=== PATIENT | female | born 1965 | race Caucasian/White ===

== ENCOUNTER 2016-07-17 23:22 | Emergency (ER) | payer OTHER ==
[2016-07-17 23:39] VITALS: BMI 29.7
--- NOTE | 2016-07-18 00:04 | PDOC ---
History of Present Illness - History of Present Illness Initial Comments: 07/18/16 00:34 Patient is a 51 year old female with significant medical hx of anxiety who is presenting to the ED after taking a sedative and smoking marijuana. Patient states she's been taking ambien for the past 20 years for sleep without any problems. Tonight she smoked marijuana for the first time after taking 15 mg of ambien. The patient came to the ED tonight because she is afraid and wants to be evaluated. The patient does not offer any other complaints. Patient also takes klonopin every morning for anxiety. <Janice Bravo - Last Filed: 07/18/16 01:04> <Samson Keen - Last Filed: 07/18/16 02:05> - General Chief Complaint: Lightheaded Stated Complaint: NUMBNESS Time Seen by Provider: 07/18/16 00:04 Past History <Janice Bravo - Last Filed: 07/18/16 01:04> - Past Medical History Psychiatric Problems: Yes (anxiety, bipolar,depression) - Immunization History Immunization Up to Date: Yes - Psycho/Social/Smoking Cessation Hx Anxiety: Yes Suicidal Ideation: No Smoking History: Never smoked Have you smoked in the past 12 months: No Information on smoking cessation initiated: No Hx Alcohol Use: No Drug/Substance Use Hx: Yes Substance Use Type: None <Samson Keen - Last Filed: 07/18/16 02:05> - Past Medical History Allergies/Adverse Reactions: Allergies Allergy/AdvReac Type Severity Reaction Status Date / Time No Known Allergies Allergy Verified 07/17/16 23:40 Home Medications: Ambulatory Orders Escitalopram Oxalate [Lexapro -] 20 mg PO DAILY 02/27/14 Zolpidem Tartrate [Ambien] 10 mg PO HS 02/27/14 Clonazepam [Klonopin -] 2 mg PO AM 07/17/16 Review of Systems - Review of Systems Comments:: 07/18/16 00:40 GENERAL/CONSTITUTIONAL: No fever or chills. No weakness. HEAD, EYES, EARS, NOSE AND THROAT: No change in vision. No ear pain or discharge. No sore throat. CARDIOVASCULAR: No chest pain or shortness of breath. RESPIRATORY: No cough, wheezing, or hemoptysis. GASTROINTESTINAL: No nausea, vomiting, diarrhea or constipation. GENITOURINARY: No dysuria, frequency, or change in urination. MUSCULOSKELETAL: No joint or muscle swelling or pain. No neck or back pain. SKIN: No rash NEUROLOGIC: No headache, vertigo, loss of consciousness, or change in strength/ sensation. <ShellyJose Carlosa - Last Filed: 07/18/16 01:04> *Physical Exam - Vital Signs Last Vital Signs Temp Pulse Resp BP Pulse Ox 120 H 18 98/73 98 07/17/16 23:32 07/17/16 23:32 07/17/16 23:32 07/17/16 23:32 - Physical Exam Comments: 07/18/16 00:40 GENERAL: Awake, alert, and fully oriented, in no acute distress HEAD: No signs of trauma EYES: PERRLA, EOMI, sclera anicteric, conjunctiva clear ENT: Auricles normal inspection, hearing grossly normal, nares patent, oropharynx clear without exudates. Moist mucosa NECK: Normal ROM, supple, no lymphadenopathy, JVD, or masses LUNGS: Breath sounds equal, clear to auscultation bilaterally. No wheezes, and no crackles HEART: Regular rate and rhythm, normal S1 and S2, no murmurs, rubs or gallops ABDOMEN: Soft, nontender, normoactive bowel sounds. No guarding, no rebound. No masses EXTREMITIES: Normal range of motion, no edema. No clubbing or cyanosis. No cords, erythema, or tenderness NEUROLOGICAL: Cranial nerves II through XII grossly intact. Normal speech, normal gait SKIN: Warm, Dry, normal turgor, no rashes or lesions noted. ENDOCRINE: No increased thirst. No abnormal weight change. HEMATOLOGIC/LYMPHATIC: No anemia, easy bleeding, or history of blood clots. ALLERGIC/IMMUNOLOGIC: No hives or skin allergy. <ShellyJanice - Last Filed: 07/18/16 01:04> - Vital Signs Last Vital Signs Temp Pulse Resp BP Pulse Ox 120 H 18 98/73 98 07/17/16 23:32 07/17/16 23:32 07/17/16 23:32 07/17/16 23:32 <Samson Keen - Last Filed: 07/18/16 02:05> Heart Score/ECG Review #1 07/18/16 00:44 Poor data quality, interpretation may be adversely affected Sinus tachycardia at 111 bpm Nonspecific T wave abnormality Abnormal ECG <ShellyJanice - Last Filed: 07/18/16 01:04> ED Treatment Course - LABORATORY CBC & Chemistry Diagram: 07/18/16 00:53 07/18/16 00:53 <ShellyJanice - Last Filed: 07/18/16 01:04> - LABORATORY CBC & Chemistry Diagram: 07/18/16 00:53 07/18/16 00:53 <Samson Keen - Last Filed: 07/18/16 02:05> Medical Decision Making - Medical Decision Making 07/18/16 01:06 Patient is feeling dysphoria as the side effects as the medicine she used to sleep and get high. Will wait for the effects to wait home and discharge. Will check for actual disease and order EKG, labs, and CXR. <Janice Bravo - Last Filed: 07/18/16 01:04> *DC/Admit/Observation/Transfer - Attestations Scribe Attestion: 07/18/16 00:40 Documentation prepared by Janice Bravo, acting as medical health researcher for Samson Keen MD. <ShellyJanice - Last Filed: 07/18/16 01:04> - Discharge Dispostion Admit: No - Attestations Physician Attestion: 07/18/16 00:04 I, Dr. Samson Keen, attest that this document has been prepared under my direction and personally reviewed by me in its entirety. I further attest, that it accurately reflects all work, treatment, procedures and medical decision -making performed by me. <Samson Keen - Last Filed: 07/18/16 02:05> Diagnosis at time of Disposition: Cannabis intoxication Qualifiers: Complication of substance-induced condition: uncomplicated Qualified Code(s): F12.920 - Cannabis use, unspecified with intoxication, uncomplicated - Discharge Dispostion Disposition: HOME Condition at time of disposition: Good - Patient Instructions Printed Discharge Instructions: Are You Taking Drugs You Don't Need? Additional Instructions: Dont Mix Prescription and Illegal Drugs.
[2016-07-18] MEDS ORDERED: ONDANSETRON 4 MG/2 ML VIAL IVPB ONE (00:06)
[2016-07-18] MEDS ORDERED: SODIUM CHLORIDE 2,000 ML IV STA (00:06)
[2016-07-18] MEDS ORDERED: ONDANSETRON 4 MG/2 ML VIAL ONE (00:22)
[2016-07-18 01:03] LABS: BASOPHIL 0.9 % (0-2.0); EOSINOPHIL 1.8 % (0-4.5); MEAN CELL VOLUME 84.8 fl (80-96); MEAN PLT VOLUME 8.3 fl (7.5-11.1); NEUTROPHILS 67.1 % (42.8-82.8); PLATELET COUNT 284 K/MM3 (134-434); RDW 12.4 % (11.6-15.6); WHITE BLOOD COUNT 11.9 K/mm3 (4.0-10.0)
[2016-07-18 01:19] LABS: INR 1.07 (0.82-1.09); PROTHROMBIN TIME (PATIENT) 11.8 SEC (9.98-11.88)
[2016-07-18 01:32] LABS: ALBUMIN 3.6 g/dl (3.4-5.0); BILIRUBIN,TOTAL 0.2 mg/dL (0.2-1.0); COCKROFT - GAULT 87.2185; TOT PROT 7.2 g/dl (6.4-8.2)
[2016-07-18 01:33] LABS: TROPONIN I < 0.02 ng/ml (0.00-0.05)
[2016-07-18 02:36] LABS: URINE APPEARANCE CLEAR; URINE BILIRUBIN NEGATIVE (NEGATIVE); URINE BLOOD NEGATIVE (NEGATIVE); URINE COLOR LTYELLOW; URINE GLUCOSE (UA) NEGATIVE (NEGATIVE); URINE KETONE NEGATIVE (NEGATIVE); URINE NITRITE NEGATIVE (NEGATIVE); URINE PROTEIN NEGATIVE (NEGATIVE); URINE UROBILINOGEN NEGATIVE E.U./dl (0.2-1.0)
[2016-07-18 02:47] LABS: URINE LEUK ESTERASE TRACE (NEGATIVE)
[2016-07-18 02:49] LABS: URINE MUCUS RARE; URINE RBC <1 /hpf (0-3); URINE WBC 1 /hpf (3-5)
[2016-07-18 03:01] VITALS: BP 110/85; PULSE 86
--- NOTE | 2016-07-18 11:04 | EKG ---
Test Reason : Blood Pressure : / mmHG Vent. Rate : 111 BPM Atrial Rate : 111 BPM P-R Int : 150 ms QRS Dur : 070 ms QT Int : 330 ms P-R-T Axes : 039 034 043 degrees QTc Int : 448 ms POOR DATA QUALITY, INTERPRETATION MAY BE ADVERSELY AFFECTED SINUS TACHYCARDIA NONSPECIFIC T WAVE ABNORMALITY ABNORMAL ECG Confirmed by JAMAAL SINGH MD ([id number]) on 07/18/2016 11:03:48 AM Referred By: Confirmed By:JAMAAL SINGH MD
== END 2016-07-18 03:01 | disposition home or self-care (01) ==
LOC: JER 23:22
PROC: 3E033GC Introduction of Other Therapeutic Substance into Peripheral Vein, Percutaneous Approach (ICD-10-PCS; principal; 2016-07-17)
PROC: 3E0337Z Introduction of Electrolytic and Water Balance Substance into Peripheral Vein, Percutaneous Approach (ICD-10-PCS; 2016-07-17)
DX: F12.920 Cannabis use, unspecified with intoxication, uncomplicated (principal)
CPT/HCPCS: 36415; 71010-TC; 80053; 81003; 81015; 82550; 83690; 84484; 84703; 85025; 85610; 93005; 93010; 99284-25

== ENCOUNTER 2016-08-28 15:22 | Emergency (ER) | payer OTHER ==
[2016-08-28 15:30] VITALS: TEMP 98; BMI 32.3
--- NOTE | 2016-08-28 15:48 | PDOC ---
History of Present Illness - General History Source: Patient Exam Limitations: No Limitations - History of Present Illness Initial Comments: 08/28/16 16:10 The patient is a 51 year old female with a significant past medical history of anxiety, and bipolar disorder, presenting to the Emergency Department with chest tightness and headache as of this morning. The patient admits to a tightness in the center of her chest and describes the headache as a pressure in her head. She admits that she frequently had panic attacks, though chest pain or tightness is not a normal symptom of her panic attacks. She admits to taking Klonopin for her panic attacks, and admits that she ran out of her prescription a few days ago. Her next doctors appointment is on Thursday. 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 She did not take Klonopin today. She admits that her panic attacks usually occur with a feeling of near syncope and a numbness to her arms. The patient denies palpitations, or shortness of breath. Patient denies dizziness, or visual changes. Patient denies nausea, vomiting, and diarrhea. Patient denies fever, chills, and cough. Social Hx: cigarette smoker (2 a day) <Leslee Melo - Last Filed: 08/28/16 18:23> <Samson Keen - Last Filed: 08/28/16 18:31> - General Chief Complaint: Chest Pain Stated Complaint: TIGHTNESS IN CHEST Time Seen by Provider: 08/28/16 15:48 Past History <Leslee Melo - Last Filed: 08/28/16 18:23> - Past Medical History Psychiatric Problems: Yes (anxiety, bipolar,depression) - Surgical History Cholecystectomy: Yes - Immunization History Immunization Up to Date: Yes - Psycho/Social/Smoking Cessation Hx Anxiety: Yes Suicidal Ideation: No Smoking History: Current some day smoker Have you smoked in the past 12 months: No Information on smoking cessation initiated: No Hx Alcohol Use: No Drug/Substance Use Hx: No Substance Use Type: None <Samson Keen - Last Filed: 08/28/16 18:31> - Past Medical History Allergies/Adverse Reactions: Allergies Allergy/AdvReac Type Severity Reaction Status Date / Time No Known Allergies Allergy Verified 08/28/16 15:27 Home Medications: Ambulatory Orders Escitalopram Oxalate [Lexapro -] 20 mg PO DAILY 02/27/14 Zolpidem Tartrate [Ambien] 10 mg PO HS 02/27/14 Clonazepam [Klonopin -] 2 mg PO AM 07/17/16 Review of Systems - Review of Systems Able to Perform ROS?: Yes Comments:: 08/28/16 16:11 GENERAL/CONSTITUTIONAL: No fever or chills. No weakness. HEAD, EYES, EARS, NOSE AND THROAT: No change in vision. No ear pain or discharge. No sore throat. CARDIOVASCULAR: + chest tightness. No shortness of breath. RESPIRATORY: No cough, wheezing, or hemoptysis. GASTROINTESTINAL: No nausea, vomiting, diarrhea or constipation. GENITOURINARY: No dysuria, frequency, or change in urination. MUSCULOSKELETAL: No joint or muscle swelling or pain. No neck or back pain. SKIN: No rash NEUROLOGIC: + headache. No vertigo, loss of consciousness, or change in strength /sensation. ENDOCRINE: No increased thirst. No abnormal weight change. HEMATOLOGIC/LYMPHATIC: No anemia, easy bleeding, or history of blood clots. ALLERGIC/IMMUNOLOGIC: No hives or skin allergy. <Leslee Melo - Last Filed: 08/28/16 18:23> *Physical Exam - Vital Signs Last Vital Signs Temp Pulse Resp BP Pulse Ox 98 F 81 18 120/73 100 08/28/16 15:27 08/28/16 15:27 08/28/16 15:27 08/28/16 15:27 08/28/16 15:27 - Physical Exam Comments: 08/28/16 18:23 GENERAL: Awake, alert, and fully oriented, in no acute distress HEAD: No signs of trauma EYES: PERRLA, EOMI, sclera anicteric, conjunctiva clear ENT: Auricles normal inspection, hearing grossly normal, nares patent, oropharynx clear without exudates. Moist mucosa NECK: Normal ROM, supple, no lymphadenopathy, JVD, or masses LUNGS: Breath sounds equal, clear to auscultation bilaterally. No wheezes, and no crackles HEART: Regular rate and rhythm, normal S1 and S2, no murmurs, rubs or gallops ABDOMEN: Soft, nontender, normoactive bowel sounds. No guarding, no rebound. No masses EXTREMITIES: Normal range of motion, no edema. No clubbing or cyanosis. No cords, erythema, or tenderness NEUROLOGICAL: Cranial nerves II through XII grossly intact. Normal speech, normal gait SKIN: Warm, Dry, normal turgor, no rashes or lesions noted. <Leslee Melo - Last Filed: 08/28/16 18:23> - Vital Signs Last Vital Signs Temp Pulse Resp BP Pulse Ox 98 F 81 18 120/73 100 08/28/16 15:27 08/28/16 15:27 08/28/16 15:27 08/28/16 15:27 08/28/16 15:27 <Samson Keen - Last Filed: 08/28/16 18:31> ED Treatment Course - LABORATORY CBC & Chemistry Diagram: 08/28/16 16:01 08/28/16 16:50 - RADIOLOGY Radiograph Interpretation: 08/28/16 18:19 Chest XRay As reviewed by Dr. Shaggy Castellon IMPRESSION: No acute pathology <Leslee Melo - Last Filed: 08/28/16 18:23> - LABORATORY CBC & Chemistry Diagram: 08/28/16 16:01 08/28/16 16:50 <Samson Keen - Last Filed: 08/28/16 18:31> *DC/Admit/Observation/Transfer - Attestations Scribe Attestion: 08/28/16 16:11 Documentation prepared by Leslee Melo, acting as medical secretary teacher for Samson Keen DO. <Leslee Melo - Last Filed: 08/28/16 18:23> - Discharge Dispostion Admit: No - Attestations Physician Attestion: 08/28/16 15:48 I, Dr. Samson Keen, attest that this document has been prepared under my direction and personally reviewed by me in its entirety. I further attest, that it accurately reflects all work, treatment, procedures and medical decision -making performed by me. <Samson Keen - Last Filed: 08/28/16 18:31> Diagnosis at time of Disposition: Anxiety - Discharge Dispostion Disposition: HOME Condition at time of disposition: Good - Patient Instructions Printed Discharge Instructions: DI for Atypical Chest Pain Additional Instructions: Deepa- All of your test results are normal. I think this is just your anxiety because you are out of [facility]. See your doctor on thursday as planned. Return to us if any problems..... Best- Dr. Samson Keen
[2016-08-28] MEDS ORDERED: clonazePAM 0.5 MG TABLET PO ONE (16:02)
[2016-08-28] MEDS ORDERED: clonazePAM 0.5 MG TABLET ONE (16:08)
[2016-08-28 16:35] LABS: BASOPHIL 0.8 % (0-2.0); EOSINOPHIL 1.8 % (0-4.5); MCH 28.2 pg (25.7-33.7); MCHC 33.5 g/dl (32.0-36.0); MEAN CELL VOLUME 84.3 fl (80-96); NEUTROPHILS 62.9 % (42.8-82.8); PLATELET COUNT 293 K/MM3 (134-434); WHITE BLOOD COUNT 10.8 K/mm3 (4.0-10.0)
[2016-08-28 16:58] LABS: INR 1.1 (0.82-1.09); PROTHROMBIN TIME (PATIENT) 12.1 SEC (9.98-11.88)
[2016-08-28 17:23] LABS: ALBUMIN 3.8 g/dl (3.4-5.0); ANION GAP 8 (8-16); BILIRUBIN,TOTAL 0.3 mg/dL (0.2-1.0); CALCIUM 9.1 mg/dL (8.5-10.1); CO2 27 mmol/L (21-32); CREATININE 0.8 mg/dL (0.55-1.02); GLUCOSE,RANDOM 91 mg/dL (74-106); MAGNESIUM 2.3 mg/dL (1.8-2.4); SGOT/AST 15 U/L (15-37); SGPT/ALT 21 U/L (12-78); TOT PROT 7.6 g/dl (6.4-8.2)
[2016-08-28 17:26] LABS: ALK PHOS 117 U/L (45-117); TROPONIN I < 0.02 ng/ml (0.00-0.05)
[2016-08-28 18:41] VITALS: BP 123/60; PULSE 80
--- NOTE | 2016-09-01 12:55 | EKG ---
Test Reason : Blood Pressure : / mmHG Vent. Rate : 075 BPM Atrial Rate : 075 BPM P-R Int : 138 ms QRS Dur : 068 ms QT Int : 366 ms P-R-T Axes : 030 032 057 degrees QTc Int : 408 ms NORMAL SINUS RHYTHM LOW VOLTAGE QRS BORDERLINE ECG WHEN COMPARED WITH ECG OF 18-JUL-2016 00:21, T WAVE VARIATION Confirmed by JONNATHAN AHN MD ([id number]) on 09/01/2016 12:54:59 PM Referred By: Confirmed By:JONNATHAN AHN MD
== END 2016-08-28 18:41 | disposition home or self-care (01) ==
LOC: JER 15:22
DX: F41.8 Other specified anxiety disorders (principal); F31.9 Bipolar disorder, unspecified; F17.210 Nicotine dependence, cigarettes, uncomplicated
CPT/HCPCS: 36415; 71010-TC; 80053; 82550; 83735; 84484; 84703; 85025; 85610; 93005; 93010; 99284-25

== ENCOUNTER 2016-10-23 16:23 | Emergency (ER) | payer OTHER ==
[2016-10-23 16:31] VITALS: BP 130/89; TEMP 97.8; BMI 30.9
--- NOTE | 2016-10-23 18:12 | PDOC ---
History of Present Illness - General Chief Complaint: Chest Pain Stated Complaint: CHEST PAIN Time Seen by Provider: 10/23/16 17:49 History Source: Patient Exam Limitations: No Limitations - History of Present Illness Initial Comments: 10/23/16 18:37 Patient is a 51-year-old female with past medical history of anxiety, panic attacks who presents to the emergency department today complaining of numbness of her face as well as chest pain. Patient states she was walking in the supermarket when she started to feel overwhelmed by everyone surrounding her. She felt that her face was going numb and she is having some sharp chest pain at that time. Sitting she felt the chest pain she immediately left the supermarket and came to the emergency department for evaluation. She usually takes Lexapro, Ambien, and Klonopin for her anxiety however she lost all of her medications approximately 2 weeks ago and she has not had a refill. She states that her medications usually keep her anxiety symptoms at bay. She endorses palpitations, anxiety. Denies weakness, fevers, chills, recent illness, cough, shortness of breath, shortness of breath on exertion, edema, syncope, nausea, vomiting and diarrhea. Past History - Travel Traveled outside of the country in the last 30 days: No Close contact w/someone who was outside of country & ill: No - Past Medical History Allergies/Adverse Reactions: Allergies Allergy/AdvReac Type Severity Reaction Status Date / Time No Known Allergies Allergy Verified 10/23/16 16:26 Home Medications: Ambulatory Orders Escitalopram Oxalate [Lexapro -] 20 mg PO DAILY 02/27/14 Zolpidem Tartrate [Ambien] 10 mg PO HS 02/27/14 Clonazepam [Klonopin -] 2 mg PO AM 07/17/16 Psychiatric Problems: Yes (anxiety, bipolar,depression) Other medical history: panic attack - Surgical History Cholecystectomy: Yes - Immunization History Immunization Up to Date: Yes - Psycho/Social/Smoking Cessation Hx Anxiety: Yes Suicidal Ideation: No Smoking History: Current some day smoker Have you smoked in the past 12 months: Yes Number of Cigarettes Smoked Daily: 3 Information on smoking cessation initiated: Yes 'Breaking Loose' booklet given: 10/23/16 Hx Alcohol Use: No Drug/Substance Use Hx: No Substance Use Type: None Review of Systems - Review of Systems Constitutional: No: Chills, Fever, Malaise, Weakness HEENTM: No: Recent change in vision, Double Vision Respiratory: No: Cough, Shortness of Breath, Wheezing Cardiac (ROS): Yes: Chest Pain, Palpitations, Chest Tightness. No: Lightheadedness, Syncope Neurological: Yes: Headache, Numbness (face, left arm and leg), Paresthesia (L arm, L leg). No: Tingling, Weakness, Dizziness Psychiatric: Yes: Anxiety, Depression All Other Systems: Reviewed and Negative *Physical Exam - Vital Signs Last Vital Signs Temp Pulse Resp BP Pulse Ox 97.8 F 81 18 130/89 100 10/23/16 16:26 10/23/16 16:26 10/23/16 16:26 10/23/16 16:26 10/23/16 16:26 - Physical Exam Comments: 10/23/16 18:39 GENERAL: Well developed, well nourished. Awake and alert. No acute distress. HEENT: Normocephalic, atraumatic. PERRLA, EOMI. No conjunctival pallor. Sclera are non- icteric. Moist mucous membranes. Oropharynx is clear. NECK: Supple. Full ROM. No JVD. Carotid pulses 2+ and symmetric, without bruits. No thyromegaly. No lymphadenopathy. CARDIOVASCULAR: Regular rate and rhythm. No murmurs, rubs, or gallops. Distal pulses are 2+ and symmetric. PULMONARY: No evidence of respiratory distress. Lungs clear to auscultation bilaterally. No wheezing, rales or rhonchi. ABDOMINAL: Soft. Non-tender. Non-distended. No rebound or guarding. No organomegaly. Normoactive bowel sounds. MUSCULOSKELETAL Normal range of motion at all joints. No bony deformities or tenderness. No CVA tenderness. EXTREMITIES: No cyanosis. No clubbing. No edema. No calf tenderness. SKIN: Warm and dry. Normal capillary refill. No rashes. No jaundice. NEUROLOGICAL: Alert, awake, appropriate. Cranial nerves 2-12 intact. No dismetreia, dysarthria. Numbness and tingling to light touch of face b/l as well as L arm and L led. No deficits to light touch and temperature in and R upper extremities and R lower extremities. No motor deficits in the in face, upper extremities and lower extremities. Normoreflexic in the upper and lower extremities. Normal speech. Toes are down-going bilaterally. Gait is normal without ataxia. PSYCHIATRIC: Cooperative. Good eye contact. Appropriate mood and affect. Medical Decision Making - Medical Decision Making 10/23/16 18:41 Patient is a 51-year-old female with past medical history of anxiety, panic attacks who presents to the emergency department today complaining of numbness of her face as well as chest pain. Potentially a panic attack however the severe diagnosis of exclusion. Given the facial and arm and leg numbness we'll order a CT at this time. We'll also rule out ACS. 1.CBC, CMP, PT/INR, cardiac labs, UA, UC, urine 2.EKG, chest x-ray, CT head 3.Klonopin 4.reevaluate
[2016-10-23] MEDS ORDERED: clonazePAM 0.5 MG TABLET PO ONE (18:14)
[2016-10-23] MEDS ORDERED: clonazePAM 0.5 MG TABLET ONE (18:27)
--- NOTE | 2016-10-23 18:42 | PDOC ---
Attending Attestation - Resident Resident Name: Sadia Torres - ED Attending Attestation I have performed the following: I have examined & evaluated the patient, The case was reviewed & discussed with the resident, I agree w/resident's findings & plan, Exceptions are as noted - HPI HPI: 10/23/16 21:00 51y F hx of anxiety, panic attacks presents with palpitations and diffuse head, b/l face and L sided arm/leg tingling. Pt states she was doing well this morning , was [place] the market and started feeling strange, like she wanted [employer] space and people to get away from her. She had a brief episode of palpitations and chest pressure lasting a few seconds before resolving, then started feelnig a tingling over her scalp, on her face and then spreading to her L arm and L leg. She also felt twitching on her R eye. The pt states she has had similar sypmtoms in the past with prior panic attacks (exactly the same distribution of symptoms) there was no associated n/v, diaphoresis, cough, sob, garland. pt currently feels improved The pts exam was unremarkable with intact, nonfocal neuro exam. suspect anxiety attack will botain two trops to r/o acs pt given clonapin will dc with pmd fu pt currently asymptomatic - Physicial Exam PE: 10/26/16 16:07 see above - Medical Decision Making 10/26/16 16:07 see above
[2016-10-23 19:32] LABS: BASOPHIL 0.8 % (0-2.0); EOSINOPHIL 1.5 % (0-4.5); MCH 28.8 pg (25.7-33.7); MCHC 33.9 g/dl (32.0-36.0); MEAN CELL VOLUME 85.1 fl (80-96); MEAN PLT VOLUME 8.5 fl (7.5-11.1); NEUTROPHILS 70.7 % (42.8-82.8); PLATELET COUNT 312 K/MM3 (134-434); RDW 12.7 % (11.6-15.6)
--- NOTE | 2016-10-23 19:43 | PDOC ---
*Physical Exam - Vital Signs Last Vital Signs Temp Pulse Resp BP Pulse Ox 97.8 F 81 18 130/89 100 10/23/16 16:26 10/23/16 16:26 10/23/16 16:26 10/23/16 16:26 10/23/16 16:26 - Physical Exam Comments: 10/23/16 19:43 Sign-out received from outgoing ER provider Melissa. Pt interviewed and examined. Ancillary studies reviewed. Awaiting labs and head CT. Head CT: The brain parenchymal architecture appears normal, with preservation of the haq -white differentiation. There is no acute intracranial hemorrhage, mass effect or midline shift. No abnormal intra-axial or extra-axial fluid collection is seen. The periventricular white matter is unremarkable. The ventricles and basilar cisterns are maintained. There are hyperdensities anterior to the middle cerebral peduncles bilaterally in the posterior fossa, compatible with volume averaging from the adjacent bone. The bones of the calvarium and imaged skull base demonstrate no acute abnormality. Incidental note is made of a small osteoma along the right frontal bone anteromedially. The imaged paranasal sinuses and mastoid air cells : unremarkable IMPRESSION: No acute territorial infarct, hemorrhage, or space-occupying mass. Read by: Tony Castillo MD 10/23/16 21:40 Patient reassessed. She states that at this time she feels "much better" and no longer has any numbness or tingling of her face. She believes that the Klonopin that was given to her today "really helped." Will rx Klonopin and Ambien as prescribed by her psychiatrist until she is able to follow up to refill meds. ED Treatment Course - LABORATORY CBC & Chemistry Diagram: 10/23/16 19:04 10/23/16 19:04 - ADDITIONAL ORDERS Additional order review: 10/23/16 19:04 RBC 5.07 MCV 85.1 MCHC 33.9 RDW 12.7 MPV 8.5 Neutrophils % 70.7 Lymphocytes % 23.8 Monocytes % 3.2 L Eosinophils % 1.5 Basophils % 0.8 - Medications Given in the ED: ED Medications Discontinued Medications Generic Name Dose Route Start Last Admin Trade Name Freq PRN Reason Stop Dose Admin Clonazepam 0.5 mg 10/23/16 18:14 10/23/16 18:41 Klonopin - PO 10/23/16 18:15 0.5 mg ONCE ONE Administration *DC/Admit/Observation/Transfer Diagnosis at time of Disposition: Anxiety, Numbness and tingling - Discharge Dispostion Disposition: HOME Condition at time of disposition: Stable Admit: No - Prescriptions Prescriptions: Zolpidem Tartrate [Ambien] 10 mg PO HS PRN #4 tablet MDD 1 PRN Reason: Insomnia Clonazepam [Klonopin -] 2 mg PO BID PRN #8 tablet MDD 2 PRN Reason: Anxiety - Patient Instructions Printed Discharge Instructions: DI for Anxiety -- Adult, Yoga May Help Reduce Anxiety and Stress Additional Instructions: Please take medications as prescribed. You must follow up with your psychiatrist within the next few days to refill your medications. If you experience any new shortness of breath, chest pain, headaches, palpitations, fever, chills, vomiting, or any new or worsening symptoms, please return to the ER.
[2016-10-23 19:45] LABS: INR 1.01 (0.82-1.09); PROTHROMBIN TIME (PATIENT) 11.1 SEC (9.98-11.88)
[2016-10-23 19:53] LABS: URINE APPEARANCE CLEAR; URINE BILIRUBIN NEGATIVE (NEGATIVE); URINE BLOOD NEGATIVE (NEGATIVE); URINE COLOR STRAW; URINE GLUCOSE (UA) NEGATIVE (NEGATIVE); URINE KETONE NEGATIVE (NEGATIVE); URINE LEUK ESTERASE NEGATIVE (NEGATIVE); URINE NITRITE NEGATIVE (NEGATIVE); URINE PROTEIN NEGATIVE (NEGATIVE); URINE UROBILINOGEN NEGATIVE mg/dL (0.2-1.0)
[2016-10-23 19:56] LABS: ALBUMIN 3.9 g/dl (3.4-5.0); ANION GAP 7 (8-16); BILIRUBIN,TOTAL 0.2 mg/dL (0.2-1.0); CALCIUM 9.2 mg/dL (8.5-10.1); CO2 28 mmol/L (21-32); CREATININE 0.7 mg/dL (0.55-1.02); GLUCOSE,RANDOM 85 mg/dL (74-106); SGOT/AST 16 U/L (15-37); SGPT/ALT 30 U/L (12-78); TOT PROT 7.7 g/dl (6.4-8.2)
[2016-10-23 20:00] LABS: ALK PHOS 146 U/L (45-117)
[2016-10-23 20:48] LABS: CPK 88 IU/L (26-192); TROPONIN I < 0.02 ng/ml (0.00-0.05)
[2016-10-23 21:57] VITALS: PULSE 79
--- NOTE | 2016-10-25 18:42 | EKG ---
Test Reason : Blood Pressure : / mmHG Vent. Rate : 075 BPM Atrial Rate : 075 BPM P-R Int : 140 ms QRS Dur : 072 ms QT Int : 376 ms P-R-T Axes : 035 035 052 degrees QTc Int : 419 ms NORMAL SINUS RHYTHM LOW VOLTAGE QRS BORDERLINE ECG WHEN COMPARED WITH ECG OF 28-AUG-2016 15:37, NO SIGNIFICANT CHANGE WAS FOUND Confirmed by JAMAAL SINGH MD ([id number]) on 10/25/2016 6:42:25 PM Referred By: Confirmed By:JAMAAL SINGH MD
== END 2016-10-23 21:57 | disposition home or self-care (01) ==
LOC: JER 16:23
DX: F41.9 Anxiety disorder, unspecified (principal); R20.0 Anesthesia of skin; R20.2 Paresthesia of skin; F17.210 Nicotine dependence, cigarettes, uncomplicated
CPT/HCPCS: 36415; 70450-TC; 71020-TC; 80053; 81003; 84484; 84703; 85025; 85610; 87086; 87186; 93005; 93010; 99284-25

== ENCOUNTER 2018-04-18 15:27 | Emergency (ER) | payer OTHER ==
[2018-04-18 15:38] VITALS: BP 110/77; PULSE 88; TEMP 98.5; BMI 27.6
[2018-04-18] MEDS ORDERED: DEXAMETHASONE LIQUID 0.5 MG/5 ML 240 ML BULK BOTTLE PO ONE (16:04)
[2018-04-18] MEDS ORDERED: diphenhydrAMINE HCL 25 MG CAPSULE (FP) PO ONE ×2 (16:07→16:10)
[2018-04-18] MEDS ORDERED: DEXAMETHASONE SOD PHOSPHATE 10 MG/1 ML VIAL ONE (16:09)
--- NOTE | 2018-04-18 16:13 | PDOC ---
History of Present Illness - General Chief Complaint: Rash Stated Complaint: DIFFICULTY BREATHING Time Seen by Provider: 04/18/18 15:55 History Source: Patient Exam Limitations: No Limitations - History of Present Illness Initial Comments: 04/18/18 16:14 Evaluation of 2 lesions to her right forearm. States noticed small area of erythema yesterday and then second today. States are pruritic in nature but giving her some general malaise today. Denies any facial, lip or tongue or pharynx swelling but feels some mild erythema to face. Denies shortness of breath, cough, breathing difficulties. Has never a history of allergens or extreme reaction to insect bites. has not affected. Has inspected home and did not know any infestations. Has not traveled anywhere recently, has no exposure to anything known to give her these lesions. use some type of anti-itch cream with minimal resolved. Timing/Duration: reports: getting worse Severity: Yes: mild, moderate Location: reports: extremities (right forearm) Respiratory Risk Factors: reports: no cause identified ( right forearm) Modifying Factors: improves with: antihistamine Associated Symptoms: reports: flushing. denies: fever, headache, nasal congestion, tingling Past History - Travel Traveled outside of the country in the last 30 days: No Close contact w/someone who was outside of country & ill: No - Past Medical History Allergies/Adverse Reactions: Allergies Allergy/AdvReac Type Severity Reaction Status Date / Time No Known Allergies Allergy Verified 04/18/18 15:34 Home Medications: Ambulatory Orders Escitalopram Oxalate [Lexapro -] 20 mg PO DAILY 02/27/14 Zolpidem Tartrate [Ambien] 10 mg PO HS 02/27/14 clonazePAM [KlonoPIN -] 2 mg PO AM 07/17/16 clonazePAM [Klonopin -] 2 mg PO BID PRN #8 tablet MDD 2 10/23/16 COPD: No Psychiatric Problems: Yes (anxiety, bipolar,depression) - Surgical History Cholecystectomy: Yes - Immunization History Immunization Up to Date: Yes - Suicide/Smoking/Psychosocial Hx Smoking History: Former smoker Have you smoked in the past 12 months: No Number of Cigarettes Smoked Daily: 3 Information on smoking cessation initiated: No 'Breaking Loose' booklet given: 10/23/16 Hx Alcohol Use: No Drug/Substance Use Hx: No Substance Use Type: None Review of Systems - Review of Systems Able to Perform ROS?: Yes Is the patient limited Stateless proficient: Yes Constitutional: Yes: Symptoms Reported, See HPI, Malaise. No: Fever HEENTM: Yes: See HPI, Nose Congestion. No: Symptoms Reported, Throat Pain Respiratory: Yes: See HPI. No: Symptoms reported, Cough, Shortness of Breath, Wheezing Musculoskeletal: Yes: Symptoms Reported, See HPI Integumentary: Yes: Symptoms Reported, Lesions (right forearm), Pruritus All Other Systems: Reviewed and Negative *Physical Exam - Vital Signs Last Vital Signs Temp Pulse Resp BP Pulse Ox 98.5 F 88 18 110/77 99 04/18/18 15:37 04/18/18 15:37 04/18/18 15:37 04/18/18 15:37 04/18/18 15:37 - Physical Exam General Appearance: Yes: Nourished, Appropriately Dressed. No: Apparent Distress HEENT: positive: LUIZ, Normal ENT Inspection, TMs Normal, Pharynx Normal. negative: Rhinorrhea Neck: positive: Supple. negative: Lymphadenopathy (R), Lymphadenopathy (L) Respiratory/Chest: positive: Lungs Clear, Normal Breath Sounds. negative: Rhonchi, Stridor, Wheezing Musculoskeletal: positive: Normal Inspection Extremity: positive: Normal Capillary Refill, Normal Inspection, Normal Range of Motion Integumentary: positive: Normal Color, Erythema (to firm erythematous lesions to right forearm approximately 3 cm nonfluctuant, ulnar lateral lesion approximately 2 cm firm, nonfluctuant and pruritic in nature. 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 Given 1 dose of Decadron 10 mg and encouraged to use antihistamines, cool packs and topical creams. Will return to emergency department or follow-up with PMD as needed *DC/Admit/Observation/Transfer Diagnosis at time of Disposition: Insect bites and stings Qualifiers: Encounter type: initial encounter Qualified Code(s): W57.XXXA - Bitten or stung by nonvenomous insect and other nonvenomous arthropods, initial encounter - Discharge Dispostion Disposition: HOME Condition at time of disposition: Stable Decision to Admit order: No - Referrals Referrals: Giovani Henderson MD [Primary Care Provider] - - Patient Instructions Printed Discharge Instructions: DI for Insect Bites and Stings Additional Instructions: Rest, keep cool and dry- avoid strenuous activity or hot /humid environments Less hot showers, no abrasive soaps May use heavy creams like Eucerin or Cetaphil to keep skin moist May apply Aveeno, calamine lotion, [id number] hydrocortisone creams as needed for symptoms May use Benadryl at night for antihistamine, Zyrtec/ Nighat or Claritin for daytime antihistamine use to help with itching You have been given 1 dose of Decadron 10 mg as a long-acting dose of steroid to assist with swelling and itching. May use [id number] hydrocortisone cream on all areas except face Try to identify cause for rash and avoid exposures Followup with PMD in one week if no resolution Make appointment with valve mechanic for evaluation when possible - Post Discharge Activity
== END 2018-04-18 16:23 | disposition home or self-care (01) ==
LOC: JERFT 15:27
DX: S50.861A Insect bite (nonvenomous) of right forearm, initial encounter (principal); W57.XXXA Bitten or stung by nonvenomous insect and other nonvenomous arthropods, initial encounter; Y93.89 Activity, other specified; Y92.018 Other place in single-family (private) house as the place of occurrence of the external cause; Y99.8 Other external cause status
CPT/HCPCS: 99281-25

== ENCOUNTER 2018-06-30 10:27 | Emergency (ER) | payer OTHER ==
[2018-06-30 10:37] VITALS: BP 136/86; PULSE 68; TEMP 98.3; BMI 29.2
[2018-06-30] MEDS ORDERED: KETOROLAC TROMETHAMINE 60 MG/2 ML VIAL IM ONE (12:08)
[2018-06-30] MEDS ORDERED: KETOROLAC TROMETHAMINE 60 MG/2 ML VIAL ONE (12:11)
--- NOTE | 2018-06-30 12:12 | PDOC ---
History of Present Illness - General Chief Complaint: Pain Stated Complaint: LF / RT SHOULDER PAIN Time Seen by Provider: 06/30/18 11:55 History Source: Patient Exam Limitations: No Limitations - History of Present Illness Initial Comments: 06/30/18 12:09 Patient here with multiple medical issues including chronic neck pain. has had neck issues for proximally 7 years and was scheduled for an MRI 3 months ago but was unable to complete the testing due to transportation issues. Patient attends pain management for chronic back and neck pain but states tramadol does not Gurpreet with her other psychiatric medication so as hasn't to take. Patient states pain in her shoulders has progressively worsened over the past few weeks. Denies any changes in exercise or activity, had a fall but her neck and shoulder pain was hurting before that time. Occurred: reports: other Severity: reports: moderate Pain Location: reports: neck, upper extremity (bilateral shoulders) Modifying Factors: improves with: None Associated Symptoms (Fall): headache, muscle spasms, neck pain Past History - Travel Traveled outside of the country in the last 30 days: No Close contact w/someone who was outside of country & ill: No - Past Medical History Allergies/Adverse Reactions: Allergies Allergy/AdvReac Type Severity Reaction Status Date / Time No Known Allergies Allergy Verified 06/30/18 10:36 Home Medications: Ambulatory Orders Escitalopram Oxalate [Lexapro -] 20 mg PO DAILY 02/27/14 Zolpidem Tartrate [Ambien] 10 mg PO HS 02/27/14 clonazePAM [KlonoPIN -] 2 mg PO AM 07/17/16 clonazePAM [Klonopin -] 2 mg PO BID PRN #8 tablet MDD 2 10/23/16 Naproxen [Naprosyn -] 500 mg PO BID #30 tablet 06/30/18 COPD: No Psychiatric Problems: Yes (anxiety, bipolar,depression) Other medical history: arthritis, herniated discs, cyst on spine, chronic pain - Surgical History Cholecystectomy: Yes - Immunization History Immunization Up to Date: Yes - Suicide/Smoking/Psychosocial Hx Smoking History: Never smoked Have you smoked in the past 12 months: No Number of Cigarettes Smoked Daily: 3 Information on smoking cessation initiated: No 'Breaking Loose' booklet given: 10/23/16 Hx Alcohol Use: No Drug/Substance Use Hx: No Substance Use Type: None Review of Systems - Review of Systems Able to Perform ROS?: Yes Is the patient limited Irish proficient: Yes Constitutional: Yes: Symptoms Reported, See HPI HEENTM: Yes: See HPI. No: Symptoms Reported Respiratory: Yes: Symptoms reported, See HPI. No: Cough Musculoskeletal: Yes: Symptoms Reported, See HPI, Back Pain, Muscle Pain, Neck Pain All Other Systems: Reviewed and Negative *Physical Exam - Vital Signs Last Vital Signs Temp Pulse Resp BP Pulse Ox 98.3 F 68 18 136/86 100 06/30/18 10:34 06/30/18 10:34 06/30/18 10:34 06/30/18 10:34 06/30/18 10:34 - Physical Exam General Appearance: Yes: Nourished, Appropriately Dressed, Mild Distress HEENT: positive: LUIZ, Normal ENT Inspection, Normal Voice, TMs Normal, Pharynx Normal Neck: positive: Tender, Supple (able to turn had from side to side with conversation, no crepitus or step-offs along the vertebral spine. Has some mild tenderness to the paravertebral musculature without palpable spasm noted. Strong shrug, movement from side to side down to neck is intact.). negative: Lymphadenopathy (R), Lymphadenopathy (L) Respiratory/Chest: positive: Lungs Clear Cardiovascular: positive: Regular Rhythm Gastrointestinal/Abdominal: positive: Soft. 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 We will continue NSAIDs and encourage patient to follow-up with primary to reorder MRI and other studies for each her follow-up with orthopedist for evaluation of cervical spine *DC/Admit/Observation/Transfer Diagnosis at time of Disposition: Cervical radiculopathy - Discharge Dispostion Disposition: HOME Condition at time of disposition: Stable Decision to Admit order: No - Referrals Referrals: Giovani Henderson MD [Primary Care Provider] - - Patient Instructions Printed Discharge Instructions: DI for Cervical Radiculopathy Additional Instructions: Rest, ice to area on and off for 15 minutes 4-6 times a day Avoid heavy lifting or exercise until pain and swelling is resolved or until further directed Keep area highly elevated to reduce swelling Use splints/Anshul wrap as directed Followup with orthopedist in one to 2 days if not improving, if significantly improved may wait one week for followup with orthopedist May use ibuprofen/ or Naprosyn as directed for swelling and pain - Post Discharge Activity
== END 2018-06-30 12:25 | disposition home or self-care (01) ==
LOC: JERFT 10:27
PROC: 3E0233Z Introduction of Anti-inflammatory into Muscle, Percutaneous Approach (ICD-10-PCS; principal; 2018-06-30)
DX: M54.12 Radiculopathy, cervical region (principal); G89.29 Other chronic pain
CPT/HCPCS: 99281-25

== ENCOUNTER 2020-10-26 11:48 | Emergency (ER) | payer OTHER ==
[2020-10-26 12:01] VITALS: BP 121/78; PULSE 82; BMI 29.9
[2020-10-26 12:02] VITALS: TEMP 98.2
== END 2020-10-26 14:25 | disposition home or self-care (01) ==
LOC: JERFT 11:48
DX: M54.32 Sciatica, left side (principal)
CPT/HCPCS: 93971-TC; 99284-25